=== PATIENT | female | born 1980 | race Caucasian/White ===

== ENCOUNTER 2019-09-22 13:19 | Emergency (ER) | payer OTHER, SELFPAY ==
--- NOTE | ~2019-09-22 | US_ITS ---
EXAMINATION: US OB <= 14 weeks fetus DATE: 09/22/2019 15:34 INDICATION: Vaginal bleeding and pelvic pain during first trimester TECHNIQUE: Real-time pelvic ultrasound utilizing both a transvaginal and transabdominal probe was pe rformed. The interpreting radiologist was not present for the study. COMPARISON: None. FINDINGS: The uterus measures 12.8 x 8.7 x 10.1 cm. There is an intrauterine gestational sac. A yolk sac and f etal pole are identified. The crown rump length measures 1.4 cm, which correlates with an estimated g estational age of 7 weeks and 4 days. heart motion is identified measuring 168 beats per minute (bpm) by M-mode Doppler. 5.2 x 4.8 6.4 cm heterogeneously hypoechoic fibroid at the uterine fundus. A couple subcentimeter anechoic nabothian cysts at the cervix. The right ovary measures 3.5 x 2.9 x 2.4 cm. And contains a 1.7 cm anechoic likely corpus luteum cyst . The left ovary measures 3.1 x 1.9 x 3.3 cm. There are at least 3 subcentimeter anechoic follicles i n the left ovary. Vascular flow is identified in both ovaries on color Doppler. There is no free flui d in the pelvis. IMPRESSION: 1. Single living fetus with heart rate of 168 bpm. 2. Gestational age by ultrasound of 7 weeks 4 day(s) +/- 5 day(s) with ultrasound estimated date of delivery (VIRGILIO) of 05/06/2020. 3. 6.4 cm fibroid at the uterine fundus. Reviewed, dictated and finalized at location A. [facility] ARTIST MODEL IMPRESSION: 1. Single living fetus with heart rate of 168 bpm. 2. Gestational age by ultrasound of 7 weeks 4 day(s) +/- 5 day(s) with ultraso und estimated date of delivery (VIRGILIO) of 05/06/2020. 3. 6.4 cm fibroid at the uterine fundus.
[2019-09-22 13:25] VITALS: BP 134/74; PULSE 84; RESP 16; TEMP 36.7; O2SAT 100
[2019-09-22 13:55] VITALS: BP 130/77; PULSE 86
[2019-09-22 13:57] VITALS: BP 126/70; PULSE 83
[2019-09-22 13:58] VITALS: BP 125/73; PULSE 94
--- NOTE | 2019-09-22 14:15 | ED.PREGNANCY ---
HPI - General Chief complaint: OB/Uterine Contractions <ZAHEER Kidd Last Filed: 09/22/19 16:03> Stated complaint: 7 WEEKS BLEEDING <ZAHEER Kidd Last Filed: 09/22/19 16:03> Time Seen by Provider: 09/22/19 13:23 <ZAHEER Kidd Last Filed: 09/22/19 16:03> Source: patient <ZAHEER Kidd Last Filed: 09/22/19 16:03> Mode of arrival: ambulatory <ZAHEER Kidd Last Filed: 09/22/19 16:03> Limitations: no limitations <ZAHEER Kidd Last Filed: 09/22/19 16:03> History of Present Illness HPI Narrative: Patient is a 39-year-old female who presents to emergency department for evaluation of vaginal bleeding that increased today and notes that she has been having off-and-on spotting over the last week after seeing Dr. Guillen in the office on Saturday began to have spotting on Saturday. Patient has not informed her siding coreboard inspector that she has had bleeding. Patient notes she had ultrasound yesterday. Patient notes today she has had red blood per the vagina denying any pain. patient denies any pain on arrival. Patient is G6, P4. Patient denies any vomiting diarrhea urinary symptoms. <ZAHEER Kidd Last Filed: 09/22/19 16:03> Related Data Home medications: Home Medications Medication Instructions Recorded Confirmed albuterol sulfate [ProAir HFA] INHALATION 09/22/19 <ZAHERE Kidd Last Filed: 09/22/19 16:03> Allergies/Adverse reactions: Allergies Allergy/AdvReac Type Severity Reaction Status Date / Time No Known Allergies Allergy Verified 09/22/19 13:41 <ZAHEER Kidd Last Filed: 09/22/19 16:03> Review of Systems Review of Systems: Narrative: CONSTITUTIONAL: Denies fever, chills, or sweats. EYES: Denies redness, or discharge. ENT: Denies rhinorrhea, congestion, sore throat, or otalgia. RESPIRATORY: Denies cough or dyspnea. GASTROINTESTINAL: Denies abdominal pain, nausea, vomiting, or diarrhea. GENITOURINARY: Denies dysuria or hematuria. SKIN: Denies rash or itching. MUSCULOSKELETAL: Denies back pain, joint pain, or myalgia. NEUROLOGIC: Denies headache <Ken Edmondson PA-C - Last Filed: 09/22/19 16:03> [facility] Social History Social History: Social History (Updated 09/22/19 @ 14:17 by Ken Edmondson PA-C) Smoking status: Current every day smoker Gender identity (if verbalized by the patient): Female <Ken Edmondson PA-C - Last Filed: 09/22/19 16:03> Exam Narrative: Exam Narrative: GENERAL: Well-appearing, well-nourished, and in no acute distress. HEAD: Normocephalic, atraumatic. EYES: PERRLA and EOMI. ENT: Nares clear, no rhinorrhea or epistaxis. Mucous membranes moist. Oropharynx without tonsillar hypertrophy exudate or other lesions. CHEST: Clear to auscultation. No respiratory distress. No wheezes rales or rhonchi HEART: Regular rate and rhythm. No murmur heard. Normal peripheral pulses. ABDOMEN: Soft, nontender, nondistended EXTREMITIES: Normal range of motion. No edema. SKIN: Warm, dry, no rash. NEURO: No focal deficits. Alert and oriented x3. Cranial nerves II through XII grossly intact. Normal speech and gait PSYCH: Normal mood and affect. <Ken Edmondson PA-C - Last Filed: 09/22/19 16:03> Course Course Emergency Course: Patient in the room in no distress at this time aware of case findings treatment plan diagnosis recommendations and discussion with siding coreboard inspector <Ken Edmondson PA-C - Last Filed: 09/22/19 16:03> Consultations Consultation #1: Discussed case with Dr. Guillen who is aware of the case and will follow patient in clinic <Ken Edmondson PA-C - Last Filed: 09/22/19 16:03> Date: 09/22/19 <ZAHEER Kidd Last Filed: 09/22/19 16:03> Time: 16:00 <ZAHEER Kidd Last Filed: 09/22/19 16:03> Vital Signs Vital signs: Vital Signs Temperature 36
[2019-09-22 14:16] LABS: Add Urine Microscopic? YES; Appearance Urine Clear (Clear); Bacteria Urine Trace /hpf; Bilirubin Urine Negative (Negative); Blood Urine 3+ (Negative); Color Urine Straw (Yellow); Glucose Urine UA Negative (Negative); Ketones Urine Negative (Negative); Leukocyte Esterase Ur Trace LEU/UL (Negative); Mucus Urine Rare /lpf; Nitrate Urine Negative (Negative); Protein Urine Negative (Negative); RBC Urine 0-2 /hpf (0-2); Specific Grav Ur 1.006 (1.001-1.035); Squamous Epithelial Cell Urine Moderate /hpf (Few); Urobilinogen Urine Negative mg/dL (<2.0); WBC Urine 0-3 /hpf
--- NOTE | 2019-09-22 15:11 | PC.NURSE ---
pt not in room unable to redraw cbc
[2019-09-22 15:43] LABS: Basophils Absolute Auto 0.1 K/mm3 (0.0-0.1); Basophils Percent Auto 0.9 % (0.2-1.2); Eosinophils Absolute Auto 0.2 K/mm3 (0-0.3); Eosinophils Percent Auto 2.6 % (0-4.4); Hematocrit 35.3 % (37.0-47.0); Hemoglobin 10.2 g/dL (12.0-15.0); Immature Granulocyte Absolute 0.01 K/mm3 (0.00-0.031); Immature Granulocyte Percent A 0.1 % (0-0.5); Immature Platelet Fraction Pct 13.6 % (0.9-11.2); Lymphocytes Absolute Auto 2.27 K/mm3 (0.9-3.2); Lymphocytes Percent Auto 29.9 % (18.3-44.2); Mean Corpuscular HGB Conc 28.9 g/dl (32-36); Mean Corpuscular Volume 69.4 fl (80-100); Monocytes Absolute Auto 0.5 K/mm3 (0.1-0.6); Monocytes Percent Auto 6.7 % (2.6-8.5); Neutrophils Absolute Auto 4.5 K/mm3 (1.3-6.7); Neutrophils Percent Auto 59.8 % (45.5-73.1); Platelet Count Result 176 k/mm3 (150-375); Red Blood Count 5.09 M/mm3 (4.2-5.4); Red Cell Distribution Width 21.3 % (11.5-14.5); White Blood Count 7.6 K/mm3 (4.5-10.0)
[2019-09-22 15:58] LABS: Large Platelets Present; Platelet Estimate Adequate (Adequate)
[2019-09-22 15:59] LABS: Anisocytosis 2+ (NORMAL); Ovalocytes 1+ (NORMAL)
[2019-09-22] MEDS: RHO(D) IMMUNE GLOBULIN 300 MCG SYRINGE IM (16:07)
[2019-09-22 16:20] VITALS: BP 133/62; PULSE 71; RESP 16; TEMP 37.1; O2SAT 99
== END 2019-09-22 16:32 | disposition home or self-care (01) ==
PROVIDERS: Emergency Medicine Emergency Medical Services; Emergency Provider Emergency Medicine
DX: O20.9 Hemorrhage in early pregnancy, unspecified (principal); Z3A.01 Less than 8 weeks gestation of pregnancy; O99.331 Smoking (tobacco) complicating pregnancy, first trimester; F17.210 Nicotine dependence, cigarettes, uncomplicated
CPT/HCPCS: 36415; 76801; 81001; 84702; 85025; 85055; 86850; 90384; 96372; 99284; J2790

== ENCOUNTER 2021-11-07 10:25 | Outpatient (CLI) | payer OTHER, SELFPAY ==
--- NOTE | ~2021-11-07 | US_ITS ---
EXAMINATION: US pelvic complete EXAM DATE: 11/07/2021 10:59 INDICATION: N85.2 - Hypertrophy of uterus . TECHNIQUE: Pelvic transabdominal sonogram was performed. There are multiple grayscale and Doppler im ages available for interpretation. Comparison is made to prior examination from 09/22/2019. FINDINGS: Uterus measures 12.4 x 9.3 x 7.6 cm, with a fundal fibroid measuring 6 cm. Endometrial str ipe are well visualized, at least partly due to the large fibroid. There is no free pelvic fluid. Right adnexa: The ovary measures 3.4 x 2.6 x 2.7 cm and is morphologically normal. Ovarian vascular f low confirmed. Left adnexa: The ovary measures 3.0 x 2.4 x 1.8 cm and is morphologically normal. Ovarian vascular fl ow confirmed. IMPRESSION: 1. Large fundal fibroid unchanged. Reviewed, dictated and finalized at location G.
== END 2021-11-07 10:26 | disposition home or self-care (01) ==
PROVIDERS: PCP Internal Medicine; Visit Provider Obstetrics & Gynecology
DX: D25.9 Leiomyoma of uterus, unspecified (principal); N85.2 Hypertrophy of uterus
CPT/HCPCS: 76856

== ENCOUNTER 2021-11-25 16:47 | Emergency (ER) | payer OTHER, SELFPAY ==
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
[2021-11-25 17:04] VITALS: BP 123/67; PULSE 78; RESP 20; TEMP 37.1; O2SAT 100
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
== END 2021-11-25 19:00 | disposition home or self-care (01) ==
PROVIDERS: Emergency Provider Registered Nurse
DX: M54.2 Cervicalgia (principal); M54.6 Pain in thoracic spine; F17.200 Nicotine dependence, unspecified, uncomplicated; F12.90 Cannabis use, unspecified, uncomplicated
CPT/HCPCS: 72040; 72072; 99214; G0463

== ENCOUNTER 2022-02-01 12:06 | Inpatient (IN) | payer OTHER, SELFPAY ==
[2022-01-26 15:21] VITALS: BMI 29.2
--- NOTE | 2022-01-26 15:24 | SUR.PREOP ---
Report to the Outpatient Waiting Room, entrance under the green pavilion located off [facility], at time _0630 on date _02/01/22 . OR Time: _0830 - You and your visitor will be asked a series of questions to screen for COVID 19 for your protection. - Only one visitor is allowed at this time. - The patient visitor is requested to leave or wait in car when not with patient. - A mask is required within the hospital. Patients may have clear liquids (water, carbonated beverages, clear teas, apple juice) until 3 hours prior to surgery with a maximum of 20 ounces. - No food from midnight until time of surgery - Infants may have breast milk until 4 hours before surgery, infant formula 6 hours prior to surgery. - Children will be allowed to drink immediately following surgery. If applicable, please bring a bottle or sippy cup to assist with drinking. Juice, water, soda, and popsicles are readily available. For infants on formula, please bring formula the day of surgery. Pacifiers are allowed. Take the following medications with a SIP of water the morning of surgery: __bring albuterol inhaler Medications to discontinue per physician n/a Date to take last dose_n/a Please no make-up, nail albanian, hairspray, perfume, deodorant, or body powder the day of surgery. No jewelry (including any body piercings) or valuables the day of surgery, leave them at home. Please take a shower or bath the night before, or the morning of, surgery with an antibacterial soap. Wear comfortable, loose fitting clothing. Children are encouraged to wear pajamas. - Jewelry must be removed prior to entering the operating room. Rings and piercings that are not removed may be cut off. - The hospital will not accept responsibility for valuables. - Please leave all valuables, including medications, at home the day of surgery. If you are going home after surgery, a licensed tractor driver must drive you home. - NO public transportation without another adult. - We recommend that an adult stay with you for 24 hours following discharge. - We also recommend that you do not drive, make important decision, drink alcoholic beverages, or take any drugs that were not prescribed by your health care provider for at least 24 hours after your discharge time. For Pediatric surgeries, we recommend two adults accompany the child home (only one inside the building at this time). Follow any additional instructions given to you from your surgeon. If you or anyone in your household have experienced Covid symptoms in the past week, please notify your surgeon or the nurse liaison at the phone number below for possible testing. Telephone instructions given to [email or web address] and asked if any additional questions and then verbalized understanding. Patient advised to call surgeon office or pre surgery nurse liaison [phone] if any additional questions.
--- NOTE | 2022-01-31 14:23 | WPDANESEPPF ---
Anes - Initial Pre Proc Eval Procedure: Operation Date: 02/01/22 08:30 Proposed Procedures p Total Abdominal Hysterectomy - Leonardo Guillen MD Date/Time: 01/31/22 14:23 Surgeon: Leonardo Guillen MD Pre Op Diagnosis: uterine fibroid Patient Data Age: 41 Gender: F Height: 1.65 m Weight: 79.54 kg Allergies Allergy/AdvReac Type Severity Reaction Status Date / Time nitrofurantoin Allergy Unknown Verified 02/01/22 06:42 [From Macrobid] Home Medications Medication Instructions Recorded Confirmed Type albuterol sulfate 90 mcg/actuation 1 inh inhalation PRN 01/26/22 02/01/22 History aerosol inhaler Patient hx anesthesia problems: none Family hx anesthesia problems: none Results Review: All pre-operative results and documents have been reviewed as part of the pre-operative evaluation. [facility] Past Medical History Medical History Anxiety Asthma Leiomyoma Miscarriage 03/19/2000 suction d&c 10/15/19 suction d&c Overweight (BMI 25.0-29.9) Smoker Surgical History Surgical History History of colposcopy with cervical biopsy 10/08/02 History of tubal ligation History of umbilical hernia repair Social History Social History Smoking status: Current every day smoker Tobacco type: cigarettes Additional smoking assessment comments: 26 yeara 1/2 ppd cigarettes Alcohol intake: current Alcohol use details: 2 times a year Substance use: current Substance use type: marijuana Other substance usage details: smoking daily. 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 Gender identity (if verbalized by the patient): Female Sexual Orientation (if Verbalized by the Patient): Straight or Heterosexual Spiritual care concerns: No Anes - Eval Final PreProcedure Day of Procedure 01/31/22 14:23 Patient weight: overweight Heart: regular rate and rhythm Lungs: clear to auscultation and normal air movement Airway: Mallampati scale class II Neurological: alert and oriented Last oral intake: >/= 8 hours ASA classification: II Emergent: no Anesthetic plan: proceed Anesthesia type and monitoring: general ETT Results Review: All pre-operative results and documents have been reviewed as part of the pre-operative evaluation. Informed Consent: The patient's anesthetic plan and its attendant risks and benefits were discussed with the patient/family/POA. Questions were solicited and answers provided to the satisfaction of the patient/family/POA.
--- NOTE | 2022-01-31 16:03 | PM.IMHP ---
H&P: HPI History of Present Illness Date/Time: 01/31/22 16:03 41-year-old 6 para 4024 female presents for definitive therapy of heavy vaginal bleeding cramping clotting fibroid and knee Susan. She has had heavy vaginal bleeding for over 1 year and has been seeing her primary care physician who has transfused her on multiple occasions but otherwise no significant evaluations been undertaken. We were able to see her approximately 3 months ago and exam revealed 14 size uterus which by ultrasound was confirmed with also a 6cm fibroid noted. She has continued with heavy bleeding cramping clotting has been to the emergency room again since her last visit for transfusion. Presents today for definitive therapy in the form of hysterectomy. Chief Complaint: Symptomatic fibroid uterus Review of Systems Review of Systems: All systems reviewed & are unremarkable except as noted in HPI and below PMFSH Past Medical History Medical History Anxiety Asthma Leiomyoma Miscarriage 03/19/2000 suction d&c 10/15/19 suction d&c Overweight (BMI 25.0-29.9) Smoker Surgical History Surgical History History of colposcopy with cervical biopsy 10/08/02 History of tubal ligation History of umbilical hernia repair Social History Social History Smoking status: Current every day smoker Tobacco type: cigarettes Additional smoking assessment comments: 24 yeara 1/2 ppd cigarettes Alcohol intake: current Alcohol use details: 2 times a year Substance use: current Substance use type: marijuana Other substance usage details: smoking daily. 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 Gender identity (if verbalized by the patient): Female Sexual Orientation (if Verbalized by the Patient): Straight or Heterosexual Spiritual care concerns: No Meds Home Medications and Allergies Home Medications Medication Instructions Recorded Confirmed Type albuterol sulfate 90 mcg/actuation 1 inh inhalation PRN 01/26/22 01/26/22 History aerosol inhaler Allergies Allergy/AdvReac Type Severity Reaction Status Date / Time nitrofurantoin Allergy Unknown Verified 01/26/22 14:56 [From Macrobid] Exam Const: General: cooperative, healthy appearing and comfortable Resp: Effort & Inspection: normal respiratory effort Auscultation: clear to auscultation bilaterally Cardio: Rate: regular rate Rhythm: regular rhythm GI: Inspection: normal to inspection GI Palp: Yes abdominal tenderness and Yes Palpable mass present ( midline mass noted) Auscultation: normal bowel sounds : External Female Exam: normal external appearance Speculum Exam - Vagina: normal appearance of the vagina Speculum Exam - Cervix: normal appearance of the cervix Bimanual exam- vagina & uterus: enlarged ( 14-16 week size.) Bimanual Exam- Adnexa, other: normal adnexae Assessment and Plan Assessment and plan (1) Menometrorrhagia: Code(s): N92.1 - Excessive and frequent menstruation with irregular cycle Status: Acute Assessment and Plan: proceed with abdominal hysterectomy with bilateral salpingectomy. Plan for ovarian preservation at this point. (2) Leiomyoma: Code(s): D21.9 - Benign neoplasm of connective and other soft tissue, unspecified Status: Acute (3) Anemia: Code(s): D64.9 - Anemia, unspecified Status: Acute
[2022-02-01] VITALS (14 sets, daily range): BP systolic 113–142; BP diastolic 55–81; PULSE 53–116; RESP 12–18; TEMP 36.4–37.1; O2SAT 95–100
[2022-02-01] MEDS: ACETAMINOPHEN 500 MG TABLET 1000 MG PO (06:43)
[2022-02-01 07:17] LABS: Hematocrit 44.1 % (37.0-47.0); Hemoglobin 13.9 g/dL (12.0-15.0); Immature Platelet Fraction Pct 11.3 % (0.9-11.2); Mean Corpuscular HGB Conc 31.5 g/dl (32-36); Mean Corpuscular Hemoglobin 27.6 pg (26-34); Mean Corpuscular Volume 87.7 fl (80-100); Platelet Count Result 128 k/mm3 (150-375); Red Blood Count 5.03 M/mm3 (4.2-5.4); Red Cell Distribution Width 23.4 % (11.5-14.5); White Blood Count 4.4 K/mm3 (4.5-10.0)
[2022-02-01] MEDS: LACTATED RINGERS 1,000 ML 30 ML IV CONT ×2 (07:17→10:33)
[2022-02-01] MEDS: KETOROLAC 15 MG/ML VIAL (*BKC) IV PUSH (07:18)
--- NOTE | 2022-02-01 07:24 | WPDHPUPDATE1 ---
History and Physical Update Update Date/Time: 02/01/22 07:24 History and Physical has been reviewed, including an updated exam of the patient. There are NO changes in the patient's condition. Risks, benefits, and alternatives have been discussed and questions answered. Patient agrees to proceed with procedure.
[2022-02-01] MEDS: ceFAZolin 2 GM/D5W 50 ML 2 GM/50 ML BAG IVPB (08:20)
--- NOTE | 2022-02-01 10:13 | W.PM.PROC2 ---
Procedure Note - Detailed Date of Procedure 02/01/22 Pre-op Diagnosis uterine fibroid Post-op Diagnosis Same Procedure Performed Total abdominal hysterectomy with bilateral salpingectomy Surgeon Leonardo Guillen MD Anesthesia General Indications Menometrorrhagia/dysmenorrhea/anemia Findings 1. Uterus enlarged and globular consistent with fibroid uterus. 2. Ovaries without abnormality. Description of Procedure Patient was this procedure a Pfannenstiel incision was made. This carried down the fascia which was extended bilaterally the length of the skin incision. Superiorly and inferiorly dissected away from the rectus muscles which were then bluntly dissected in the peritoneum was entered without difficulty. Bowel was packed into the upper abdomen and the uterus was identified with the tubes ovaries. Medial salpinx was cauterized and cut and the tube was removed separately. Round ligament was then grasped clamped cut and tied and incised to delineate the anterior and posterior leaf the broad ligament. Utero-ovarian ligament was then clamped cut and tied and the ovary was dropped out of the operative field. At this point the uterine vessels were skeletonized without difficulty clamped cut and tied and once the uterine arteries had been tied bilaterally the uterus was removed at the level of the cervix. Bladder was sharply and bluntly dissected off the anterior portion of the cervix. Straight Carolynn clamps were used to clamp cut and tie the paracervical tissue and then a curved clamp used across the vaginal cuff and the cervical stump was removed. Both angles of the cuff were closed using 0 Vicryl suture which rendered the angles hemostatic. Then a running interlocking layer between these 2? angles to approximate the rest of the vaginal cuff. Irrigation was undertaken and there was no bleeding [place] derm was empirically placed over the vaginal cuff. All the incisions and suture sites were identified and continued to be hemostatic. All subfascial tissue was hemostatic the fascia was approximated using 0 Vicryl from the left angle midline and the right angle midline with good approximation hemostasis noted. Irrigation was undertaken subcutaneous area and this was approximated 0 plain and then a 4-0 Monocryl subcuticular stitch to approximate the skin edges. This point seizure was considered terminated the patient was sent cover room in stable condition. Estimated Blood Loss 200 Drains Yes Packing No Pathology Yes Complications No immediate complications Condition Stable Disposition Floor [facility] Billing Surgery - Charge Forward: Surgery Billing
[2022-02-01] MEDS: ONDANSETRON INJ 4 MG/2 ML VIAL IV PUSH ×2 (10:44→20:38)
[2022-02-01] MEDS: fentaNYL CITRATE INJ (*CRX) 100 MCG/2 ML VIAL 25 MCG IV PUSH ×6 (10:48→11:22)
--- NOTE | 2022-02-01 12:10 | PC.NURSE ---
This patient, Svitlana Cross, was received from PACU via stretcher on 02/01/22 at 1210. Patient oriented to unit policies and routines
[2022-02-01] MEDS: MORPHINE SULFATE PCA (*CRX) 30 MG/30 ML SYR IV CONT (13:01)
[2022-02-01] MEDS: DEXTROSE 5%/LACTATED RINGERS 1,000 ML 125 ML IV CONT ×2 (13:58→20:41)
[2022-02-01] MEDS: KETOROLAC 30 MG/ML VIAL (*BKC) IV PUSH (17:14)
[2022-02-01] MEDS: HYDROcodone/acetaminophen (*CRX) 5-325 MG TABLET 1 TAB PO (17:14)
--- NOTE | 2022-02-01 17:14 | PC.NURSE ---
[employer] infusion stopped to start PO and IVP medications. [employer] infusion set will remain on nursing unit in case pt decides that she desires [employer] medication instead of PO/IVP meds.
[2022-02-01] MEDS: HYDROcodone/acetaminophen (*CRX) 10-325 MG TABLET 1 TAB PO (20:09)
[2022-02-01] MEDS: MORPHINE SULFATE (*CRX) 4 MG/ML INJ IV PUSH (20:38)
[2022-02-02] MEDS: KETOROLAC 30 MG/ML VIAL (*BKC) IV PUSH (04:30)
[2022-02-02 04:50] VITALS: BP 134/70; PULSE 60; RESP 18; TEMP 36.6
[2022-02-02 07:36] LABS: Basophils Percent Auto 0.4 % (0.2-1.2); Eosinophils Percent Auto 0.2 % (0-4.4); Hematocrit 42.9 % (37.0-47.0); Hemoglobin 13.2 g/dL (12.0-15.0); Immature Granulocyte Absolute 0.02 K/mm3 (0.00-0.031); Immature Granulocyte Percent A 0.2 % (0-0.5); Immature Platelet Fraction Pct 14.2 % (0.9-11.2); Lymphocytes Absolute Auto 1.49 K/mm3 (0.9-3.2); Mean Corpuscular HGB Conc 30.8 g/dl (32-36); Mean Corpuscular Hemoglobin 27.6 pg (26-34); Mean Corpuscular Volume 89.6 fl (80-100); Monocytes Absolute Auto 0.7 K/mm3 (0.1-0.6); Monocytes Percent Auto 6.6 % (2.6-8.5); Neutrophils Absolute Auto 8.4 K/mm3 (1.3-6.7); Neutrophils Percent Auto 78.6 % (45.5-73.1); Platelet Count Result 164 k/mm3 (150-375); Red Blood Count 4.79 M/mm3 (4.2-5.4); Red Cell Distribution Width 23.4 % (11.5-14.5); White Blood Count 10.7 K/mm3 (4.5-10.0)
--- NOTE | 2022-02-02 08:01 | WPDANESPN ---
Anes - Prog Note Post-Op Date/Time: 02/02/22 08:01 Cardiovascular status: normal Respiratory status: normal Airway patency: baseline Mental status: baseline Post-Op hydration status: normal Vital Signs: Last Vital Signs Temp 36.6 C 02/02/22 04:50 Pulse 60 02/02/22 04:50 Resp 18 02/02/22 04:50 BP 134/70 02/02/22 04:50 Pulse Ox 98 02/01/22 17:45 O2 Del Method Room Air 02/02/22 04:50 O2 Flow Rate 7 02/01/22 10:35 Pain Score (VAS): 3 I/O: Intake & Output 02/01/22 02/02/22 02/02/22 23:59 07:59 15:59 Intake Total 1530 1350 Output Total 1050 850 Balance 480 500 Laboratory Tests 02/02/22 07:21 02/01/22 02/02/22 07:07 07:21 WBC 10.7 H RBC 4.79 Hgb 13.2 Hct 42.9 MCV 89.6 MCH 27.6 MCHC 30.8 L RDW 23.4 H Plt Count 164 MPV TNP Immature Gran % (Auto) 0.2 Neut % (Auto) 78.6 H Lymph % (Auto) 14.0 L [place] % (Auto) 6.6 Eos % (Auto) 0.2 Baso % (Auto) 0.4 Lymph # (Auto) 1.49 [place] # (Auto) 0.7 H Eos # (Auto) 0.0 Baso # (Auto) 0.0 Abs Immat Gran (auto) 0.02 Absolute Neuts (auto) 8.4 H Absolute Nucleated RBC 0.0 Nucleated RBC % 0.0 % Immature Plt Fraction 14.2 H Antibody Screen Negative Post-procedural complaints: none Patient Feedback: Patient satisfied with anesthetic care.
[2022-02-02 08:30] VITALS: BP 126/75; PULSE 62; RESP 16; TEMP 37.1; O2SAT 98
[2022-02-02] MEDS: MORPHINE SULFATE (*CRX) 4 MG/ML INJ IV PUSH (08:30)
--- NOTE | 2022-02-02 08:36 | P.DS_ITS ---
DS: Admitting Diagnosis Discharge Date 02/02/2022 Admitting Diagnosis symptomatic uterine fibroid DS: Summary Hospital Course Hospital Course: 41-year-old female admitted for abdominal hysterectomy due to uterine fibroids and heavy bleeding with anemia. Underwent procedure without difficulty and on the 1st postoperative day she is ambulating voiding tolerating regular diet and on oral pain medications and strongly desires to go home. Time Spent with Patient Time attestation: Total time spent providing and/or coordinating discharge services: Exam Narrative: Lungs are clear Abdomen positive bowel sounds soft /incision covered by bandage but bandage is dry. Appropriately tender. DS: Data Data Completed and Pending Pending studies at discharge: Pending at discharge 02/01/22 09:49 Surgical [PTH] Routine Labs on day of discharge: Labs from last 24 hours 02/02/22 07:21 WBC 10.7 H RBC 4.79 Hgb 13.2 Hct 42.9 MCV 89.6 MCH 27.6 MCHC 30.8 L RDW 23.4 H Plt Count 164 MPV TNP Immature Gran % (Auto) 0.2 Neut % (Auto) 78.6 H Lymph % (Auto) 14.0 L [place] % (Auto) 6.6 Eos % (Auto) 0.2 Baso % (Auto) 0.4 Lymph # (Auto) 1.49 [place] # (Auto) 0.7 H Eos # (Auto) 0.0 Baso # (Auto) 0.0 Abs Immat Gran (auto) 0.02 Absolute Neuts (auto) 8.4 H Absolute Nucleated RBC 0.0 Nucleated RBC % 0.0 % Immature Plt Fraction 14.2 H Discharge Plan Discharge Discharging Clinician: Leonardo Guillen Patient Disposition: Home, Self-Care Activity: as tolerated Diet: as tolerated Patient Instructions: Antibiotic Form Stand Alone Forms: General Discharge Information Follow-up/Referrals: Leonardo Guillen MD [Physician] - 3 Weeks Discharge Medications: New hydrocodone-acetaminophen 5-325 mg Tablet 1 tablet PO Q3H PRN (Reason: Pain Rated 5 Or Less) Qty: 20 0RF ibuprofen 600 mg Tablet 600 mg PO Q6H PRN (Reason: Cramping) Qty: 30 0RF Continued albuterol sulfate 90 mcg/actuation HFA aerosol inhaler 1 inh INHALATION PRN Date of admission: 02/01/22 12:06 Primary Care Provider: PHYSICIAN NOT ON STAFF,NONSTAFF Admitting Provider: Leonardo Guillen Attending physician on admission: Leonardo Guillen Condition: Stable
[2022-02-02] MEDS: HYDROcodone/acetaminophen (*CRX) 5-325 MG TABLET 1 TAB PO (12:11)
--- NOTE | 2022-02-07 12:47 | PM.DS ---
DS: Admitting Diagnosis Discharge Date 02/02/22 Admitting Diagnosis Symptomatic uterine fibroid DS: Discharge Diagnosis Discharge Diagnosis Plan Discharge home postoperative day 1. Will be seen in 1 week for incision check. DS: Summary Hospital Course Reason for hospitalization: 41-year-old female admitted for abdominal hysterectomy due to symptomatic fibroid uterus and menometrorrhagia. Underwent procedure without difficulty. On the 1st postoperative day she was on oral pain medication tolerating regular diet and ambulating without difficulty. She will be discharged home and followed up in 1 week. Hospital Course: See above Time Spent with Patient Time attestation: Total time spent providing and/or coordinating discharge services: DS: Data Data Completed and Pending Completed studies during hospitalization: Pending at discharge 02/01/22 09:49 Surgical [PTH] Routine Discharge Plan Discharge Discharging Clinician: Leonardo Guillen Patient Disposition: Home, Self-Care Activity: as tolerated Diet: as tolerated Patient Instructions: Hysterectomy (DC) Stand Alone Forms: General Discharge Information Follow-up/Referrals: Leonardo Guillen MD [Physician] - 3 Weeks Discharge Medications: New ibuprofen 600 mg Tablet 600 mg PO Q6H PRN (Reason: Cramping) Qty: 30 0RF Continued albuterol sulfate 90 mcg/actuation HFA aerosol inhaler 1 inh INHALATION PRN Discontinued hydrocodone-acetaminophen 5-325 mg tablet 1 tablet PO Q3H PRN (Reason: Pain Rated 5 Or Less) Qty: 20 0RF Date of admission: 02/01/22 12:06 Primary Care Provider: PHYSICIAN NOT ON STAFF,NONSTAFF Admitting Provider: Leonardo Guillen Attending physician on admission: Leonardo Guillen Condition: Stable Quality Discharge diagnosis of uterine fibroids with menometrorrhagia
== END 2022-02-02 12:20 | disposition home or self-care (01) | DRG 513 ==
LOC: ANHOB2 12:10
PROVIDERS: Anesthesiology; Admitting Provider Obstetrics & Gynecology; Visit Provider Obstetrics & Gynecology
PROC: 0UT94ZZ Resection of Uterus, Percutaneous Endoscopic Approach (ICD-10-PCS; principal; 2022-02-01 08:30)
DX: N92.1 Excessive and frequent menstruation with irregular cycle (principal); D25.9 Leiomyoma of uterus, unspecified; N94.6 Dysmenorrhea, unspecified; D64.9 Anemia, unspecified; F17.210 Nicotine dependence, cigarettes, uncomplicated; F41.9 Anxiety disorder, unspecified
CPT/HCPCS: 36415; 85025; 85027; 85055; 86850; 86900; 86901; 88307; A9270; J0131; J0330; J0690; J1100; J1170; J1885; J2250; J2270; J2405; J2704; J2710; J3010; J7120; J7121

== ENCOUNTER 2023-05-29 10:02 | Outpatient (CLI) | payer OTHER, SELFPAY ==
--- NOTE | 2023-05-29 10:15 | ECG_ITS ---
Measurements Intervals [place] Rate: 59 P: 64 RI: 128 QRS: 71 QRSD: 78 T: 55 QT: 408 QTc: 405 Interpretive Statements SINUS BRADYCARDIA OTHERWISE NORMAL ECG NO PREVIOUS ECG AVAILABLE FOR COMPARISON Electronically Signed On 05-29-2023 10:34:58 CDT by Bobby Michael M.D.
== END 2023-05-29 10:03 | disposition home or self-care (01) ==
LOC: ANHSURGERY 10:06
PROVIDERS: PCP Internal Medicine; Visit Provider Surgery
DX: Z01.818 Encounter for other preprocedural examination (principal); K40.90 Unilateral inguinal hernia, without obstruction or gangrene, not specified as recurrent; F17.210 Nicotine dependence, cigarettes, uncomplicated
CPT/HCPCS: 36415; 86850; 86900; 86901; 93005

== ENCOUNTER 2023-06-04 00:23 | Day surgery (SDC) | payer OTHER, SELFPAY ==
[2023-05-27 12:57] VITALS: BMI 23.8
--- NOTE | 2023-05-27 13:02 | PC.NURSE ---
Addendum entered by Alex Pantoja RN 05/27/23 13:10: Shower with Roberto morning of surgery. Original Note: Report to the Outpatient Waiting Room, entrance under the green pavilion located off [facility], at time _1000_ on date _[id number]_. Planned Procedure Time: _1200_. Time changes happen often and if your time is changed the preop area will call you the afternoon before. - You and your visitor will be asked to self-screen and do not enter if you have any COVID symptoms. - A mask is optional within the hospital at this time. Patients may have clear liquids (water, carbonated beverages, clear teas, apple juice) until 3 hours prior to surgery with a maximum of 20 ounces. - No food from midnight until time of surgery Take the following medications with a SIP of water the morning of surgery: ___Albuterol if needed. DO NOT STOP ANY OF YOUR OTHER PRESCRIPTION MEDICATIONS PRIOR TO SURGERY ?EXCEPT THE FOLLOWING Medications to discontinue per physician None Date to take last dose Please no make-up, nail guatemalan, hairspray, perfume, deodorant, or body powder the day of surgery. No jewelry (including any body piercings) or valuables the day of surgery, leave them at home. Please take a shower or bath the night before, or the morning of, surgery with an antibacterial soap. Wear comfortable, loose fitting clothing. - Jewelry must be removed prior to entering the operating room. Rings and piercings that are not removed may be cut off. - The hospital will not accept responsibility for valuables. - Please leave all valuables, including medications, at home the day of surgery. If you are going home after surgery, a licensed paratransit driver must drive you home. - NO public transportation without another adult if you receive anesthesia. - We recommend that an adult stay with you for 24 hours following discharge. - We also recommend that you do not drive, make important decision, drink alcoholic beverages, or take any drugs that were not prescribed by your health care provider for at least 24 hours after your discharge time. Follow any additional instructions given to you from your surgeon. If you or anyone in your household have experienced Covid symptoms in the past week, please notify your surgeon or the nurse liaison at the phone number below for possible testing. Telephone instructions given to __Patient___and asked if any additional questions and then verbalized understanding. Patient advised to call surgeon office or pre surgery nurse liaison [phone] if any additional questions.
[2023-06-04] VITALS (10 sets, daily range): BP systolic 108–153; BP diastolic 61–90; PULSE 57–95; RESP 13–18; TEMP 36.6–37.2; O2SAT 96–100; BMI 23.9
[2023-06-04] MEDS: ACETAMINOPHEN 500 MG TABLET 1000 MG PO (10:21)
[2023-06-04] MEDS: KETOROLAC 15 MG/ML VIAL (*BKC) IV PUSH ×2 (10:21→15:51)
[2023-06-04] MEDS: LACTATED RINGERS 1,000 ML 30 ML IV CONT ×2 (10:22→16:13)
--- NOTE | 2023-06-04 11:08 | WPDANESEPPF ---
Anes - Initial Pre Proc Eval Procedure: Operation Date: 06/04/23 12:00 Proposed Procedures p Robotic Assisted Laparoscopic Bilateral Inguinal Hernia Repair with Mesh, Possible Open - Clay Willard MD Date/Time: 06/04/23 11:08 Surgeon: Clay Willard MD Pre Op Diagnosis: [place] Ing Hernias Patient Data Age: 43 Gender: F Height: 1.65 m Weight: 65.3 kg Last Vital Signs Temp 36.6 C 06/04/23 10:28 Pulse 95 06/04/23 10:28 Resp 18 06/04/23 10:28 BP 118/77 06/04/23 10:28 Pulse Ox 99 06/04/23 10:28 Allergies Allergy/AdvReac Type Severity Reaction Status Date / Time nitrofurantoin Allergy Unknown Verified 06/04/23 10:07 [From Macrobid] Home Medications Medication Instructions Recorded Confirmed Type albuterol sulfate 90 mcg/actuation 1 inh inhalation PRN 01/26/22 06/04/23 History aerosol inhaler Patient hx anesthesia problems: none Family hx anesthesia problems: none Results Review: All pre-operative results and documents have been reviewed as part of the pre-operative evaluation. [facility] Past Medical History Medical History Anxiety Asthma History of blood transfusion Leiomyoma Miscarriage 03/19/2000 suction d&c 10/15/19 suction d&c Overweight (BMI 25.0-29.9) Smoker Surgical History Surgical History History of colposcopy with cervical biopsy 10/08/02 History of tubal ligation History of umbilical hernia repair S/P total abdominal hysterectomy (02/01/22) LAWANDA with Bilateral salpingectomy Family History Family History Grandparent Leukemia Other Heart disease Hypertension Social History Social History Smoking packs per day: 1.5 Smoking cigarettes per day: 30.0 Years smoked: 25 Smoking pack-years: 37.50 Smoking status: Current every day smoker Tobacco type: cigarettes Additional smoking assessment comments: Down to 8 cigs per day. 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 Gender identity (if verbalized by the patient): Female Sexual Orientation (if Verbalized by the Patient): Straight or Heterosexual Spiritual care concerns: No Anes - Eval Final PreProcedure Day of Procedure 06/04/23 11:08 Patient weight: normal Heart: regular rate and rhythm Lungs: clear to auscultation Airway: Mallampati scale class II Neurological: alert and oriented Last oral intake: >/= 8 hours ASA classification: III Emergent: no Anesthetic plan: proceed Anesthesia type and monitoring: general ETT and standard monitoring Results Review: All pre-operative results and documents have been reviewed as part of the pre-operative evaluation. Informed Consent: The patient's anesthetic plan and its attendant risks and benefits were discussed with the patient/family/POA. Questions were solicited and answers provided to the satisfaction of the patient/family/POA.
[2023-06-04] MEDS: SCOPOLAMINE 1.5 MG PATCH TRANSDERM (11:42)
--- NOTE | 2023-06-04 12:27 | PM.IMHP ---
H&P: HPI History of Present Illness Date/Time: 06/04/23 12:27 Chief Complaint: Bilateral inguinal hernia Narrative: Ms. Cross presents to the office at the request of Dr. Chavis for evaluation.? She reports 4 to 5 month history of persistent bilateral groin discomfort that worsens with activity or prolonged sitting.? Has also noticed bulging in her bilateral groins.? No change in bowel habits, N/V, or abdominal distension. She has history of open total abdominal hysterectomy with bilateral salpingectomy in 01/2022 after which she had an uneventful recovery. Review of Systems Review of Systems: The remainder of the review of systems to include constitutional, HEENT, cardiovascular, respiratory, GI, , integumentary, musculoskeletal, endocrine, immunologic, hematologic, psychiatric, and neurologic are all negative except for which is mentioned above in the HPI. [facility] Past Medical History Medical History Anxiety Asthma History of blood transfusion Leiomyoma Miscarriage 03/19/2000 suction d&c 10/15/19 suction d&c Overweight (BMI 25.0-29.9) Smoker Surgical History Surgical History History of colposcopy with cervical biopsy 10/08/02 History of tubal ligation History of umbilical hernia repair S/P total abdominal hysterectomy (02/01/22) LAWANDA with Bilateral salpingectomy Family History Family History Grandparent Leukemia Other Heart disease Hypertension Social History Social History Smoking packs per day: 1.5 Smoking cigarettes per day: 30.0 Years smoked: 25 Smoking pack-years: 37.50 Smoking status: Current every day smoker Tobacco type: cigarettes Additional smoking assessment comments: Down to 8 cigs per day. 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 Gender identity (if verbalized by the patient): Female Sexual Orientation (if Verbalized by the Patient): Straight or Heterosexual Spiritual care concerns: No Meds Home Medications and Allergies Home Medications Medication Instructions Recorded Confirmed Type albuterol sulfate 90 mcg/actuation 1 inh inhalation PRN 01/26/22 06/04/23 History aerosol inhaler Allergies Allergy/AdvReac Type Severity Reaction Status Date / Time nitrofurantoin Allergy Unknown Verified 06/04/23 10:07 [From Macrobid] Vital Signs Vital Signs - 24 hr 06/04/23 10:28 Temperature 36.6 C Pulse Rate 95 Respiratory Rate 18 Blood Pressure 118/77 Pulse Oximetry 99 Exam Const: General: comfortable and no acute distress HENMT: Ears: TM's normal bilaterally Face/Nose/Sinus: Normal nares present Mouth: Yes moist mucous membranes Eyes: General: appearance normal, both eyes and all related structures Sclera: sclerae normal Pupils: Equal, round and reactive pupils present EOM: EOMs intact bilaterally Neck: Neck: supple and no JVD Resp: Effort & Inspection: normal respiratory effort Auscultation: clear to auscultation bilaterally Cardio: Rate: regular rate Rhythm: regular rhythm GI: Other: Soft, nondistended.? Well healed hysterectomy scar without incisional hernia.? Bilateral inguinal hernias right > left.? Both hernias reducible.? Skin: General skin exam: normal color and no rashes or lesions noted Neuro: General: gait normal Speech: normal speech Motor exam (neuro): 5/5 motor strength present throughout Sensory Exam: normal sensation Extrem: General: normal to inspection Psych: Mental Status: mental status grossly normal Affect: normal affect Assessment and Plan Assessment and plan (1) Inguinal her
--- NOTE | 2023-06-04 12:32 | WPDHPUPDATE1 ---
History and Physical Update Update Date/Time: 06/04/23 12:32 History and Physical has been reviewed, including an updated exam of the patient. There are NO changes in the patient's condition. Risks, benefits, and alternatives have been discussed and questions answered. Patient agrees to proceed with procedure.
[2023-06-04] MEDS: ceFAZolin 2 GM/D5W 50 ML 2 GM/50 ML BAG IVPB (12:47)
[2023-06-04] MEDS: LIDO 1%/EPINEPHRINE 1:100,000 20 ML VIAL 30 ML INFILTRATE (13:30)
[2023-06-04] MEDS: BUPivacaine HCL 0.5% PF 30 ML VIAL INFILTRATE (13:30)
--- NOTE | 2023-06-04 16:21 | W.PM.PROC2 ---
Procedure Note - Detailed Date of Procedure 06/04/23 Pre-op Diagnosis [place] Ing Hernias Post-op Diagnosis Other (Bilateral reducible indirect inguinal hernias and bilateral femoral hernias.) Procedure Performed Robotic assisted laparoscopic bilateral inguinal hernia repair with Bard 3D mid weight mesh. Surgeon Clay Willard MD Ground Hand Sean Suarez,ANTONIA and Lona KNIGHT Anesthesia General Indications Patient is a 43-year-old female who presented with bilateral groin bulges complaining of pain enlargement of the bulges. On examination bilateral inguinal hernias which were easily reducible. She presents now for a robotic assisted laparoscopic bilateral inguinal hernia pair with mesh. Findings Patient had bilateral large indirect inguinal hernias. No incarcerated contents. She also had bilateral small femoral hernias. Description of Procedure After for consent was obtained patient brought to the operating room she is places supine position and general endotracheal anesthesia was administered. The bilateral groin regions and abdomen were then prepped and draped usual sterile fashion. Time-out was then performed correctly identifying the patient as well as procedure be performed. No site marking was needed as this is a bilateral procedure. She was given preoperative IV antibiotics. The proceed and the abdomen left upper quadrant Pia and 10 mm Optiview port. Once inside the abdomen insufflated to a pneumoperitoneum 15 mm Hg of CO2. Looking into the lower portions of the abdomen there were few adhesions of the small bowel to the anterior abdominal wall below the umbilicus. I then placed additional robotic trocar ports in the bilateral abdomen and then docked a the ventral robot to the patient's bedside. They do mention a robotic arms were then docked to the ports and then robotic instruments of after into the abdomen direct visualization. I described how the procedure fat out through a consult to perform the rest the procedure. I 1st started by carefully taking down the adhesions of the small bowel to the lower anterior abdominal wall. This done with careful robotic assisted laparoscopic scissor dissection. There was no injury to the bowel with the aphasia lysis. Once this is done I then proceeded to the peritoneal flap across the lower abdomen starting at about the level of the left anterior superior iliac spine extended across the midline to the right side. Dissection was carried in this preperitoneal plane distally on both sites identifying the inferior epigastric vessels on both sides and preserving these. I dissected down medially down to the prevertebral of the pubic symphysis and allow the bladder to drop down. I dissected down into the space of Retzius for summer cm bilaterally. I then dissected laterally from the pubic and on the left side I 1st reduced the large indirect inguinal hernia sac. The round ligament was cauterized and divided. Once I have the large indirect left inguinal hernia sac dissected free I then everted the hernia sac. As I continued my dissection along the pubic symphysis I identified a left small femoral hernia was some fatty tissue within the hernia. This fatty tissue was removed from the femoral defect. It was brought out through the bedside geriatric assistant port site and discarded. I did send a section on the right side and identified a small right sided femoral defect without any fatty tissue within it. I then dissected the right indirect inguinal hernia sac out of the inguinal canal and anmol and the fact. Bilaterally at then dissected the peritoneal flap proximally until and was up all clearly onto the psoas muscle. At this point then used 2 pieces of by 3 the mid weight mesh measuring 17 cm in length by 12 cm in width. One was chosen for each side and oriented for each side. Both pieces of mesh in the placed into the abdomen and a fit very nicely and conformed to the preperitoneal space and dissected out. The meshes we
[2023-06-04] MEDS: fentaNYL CITRATE INJ (*CRX) 100 MCG/2 ML VIAL 25 MCG IV PUSH ×8 (16:34→17:16)
[2023-06-04] MEDS: oxyCODONE HCL (*CRX) 5 MG TAB IR PO (17:38)
[2023-06-04] MEDS: HYDROmorphone HCL INJ (*CRX) 1 MG/ML SYR 0.5 MG IV PUSH (17:38)
[2023-06-04] MEDS: PROPARACAINE HCL 0.5% 15 ML OPHTH SOLN 1 DROP EACH EYE (18:43)
[2023-06-04] MEDS: ARTIFICIAL TEARS OPHTH SOLN 15 ML BOTTLE 1 DROP EACH EYE (18:44)
== END 2023-06-04 19:05 | disposition home or self-care (01) ==
PROVIDERS: PCP Internal Medicine; Visit Provider Surgery
PROC: 8E0Y4CZ Robotic Assisted Procedure of Lower Extremity, Percutaneous Endoscopic Approach (ICD-10-PCS; CPT 49650; principal; 2023-06-04 12:00)
DX: K40.20 Bilateral inguinal hernia, without obstruction or gangrene, not specified as recurrent (principal); K41.20 Bilateral femoral hernia, without obstruction or gangrene, not specified as recurrent; J45.909 Unspecified asthma, uncomplicated; Z79.51 Long term (current) use of inhaled steroids; F17.210 Nicotine dependence, cigarettes, uncomplicated; F12.90 Cannabis use, unspecified, uncomplicated
CPT/HCPCS: 49650; S2900; A9270; C1781; J0690; J1100; J1170; J1885; J2250; J2405; J2704; J3010; J7120

== ENCOUNTER 2024-10-19 18:23 | Emergency (ER) | payer OTHER, SELFPAY ==
[2024-10-19 18:28] VITALS: BP 130/75; PULSE 85; RESP 20; TEMP 36.8; O2SAT 100
--- NOTE | 2024-10-19 18:47 | ED.LOWEXIN ---
HPI - Extremity Injury (Lower) General Chief Complaint: Extremity Injury, Lower Stated Complaint: right foot toe injury Time Seen by Provider: 10/19/24 18:47 Source: patient Mode of arrival: ambulatory Limitations: no limitations History of Present Illness HPI Narrative: 44-year-old female presented for complaint of right foot pain in the great toe area following an injury about 3 hours prior to arrival. She states she stubbed the toe on a bed leg and fell, stating the toe got stuck underneath the bed. Endorses swelling to the great toe. Attempted to ice and elevate without significant improvement. Did not take anything for pain. Related Data Home Medications ?Medication ?Instructions ?Recorded ?Confirmed ?Last Taken ?Type albuterol sulfate 90 mcg/actuation 1 inh inhalation PRN 01/26/22 06/19/23 06/04/23 History aerosol inhaler ferrous sulfate 325 mg (65 mg mg 10/19/24 Unknown History iron) tablet (FeroSul) Allergies Allergy/AdvReac Type Severity Reaction Status Date / Time nitrofurantoin (From Allergy Unknown Verified 06/19/23 14:09 Macrobid) Review of Systems Review of Systems: per HPI All systems reviewed & are unremarkable except as noted in HPI and below PMFSH Past Medical History Medical History (Updated 10/19/24 @ 19:37 by Ana Cristina Sanchez APRN) History of blood transfusion Anxiety Smoker Overweight (BMI 25.0-29.9) Asthma Leiomyoma Miscarriage 03/19/2000 suction d&c 10/15/19 suction d&c Surgical History Surgical History (Updated 06/19/23 @ 14:20 by ANISA Yun) History of hernia repair Robotic assisted laparoscopic bilateral inguinal hernia repair with Bard 3D mid weight mesh 06/04/23 SAW S/P total abdominal hysterectomy (02/01/22) LAWANDA with Bilateral salpingectomy History of umbilical hernia repair History of tubal ligation History of colposcopy with cervical biopsy 10/08/02 Family History Family History Grandparent Leukemia Other Heart disease Hypertension Social History Social History Smoking packs per day: 1.5 Smoking cigarettes per day: 30.0 Years smoked: 25 Smoking pack-years: 37.50 Smoking status: Current every day smoker Tobacco type: cigarettes Additional smoking assessment comments: Down to 8 cigs per day. 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 Please see nursing chart for further information. There is no relevant family history pertinent to the presenting complaint Exam Narrative: GENERAL: Well-appearing CHEST: Speaks in full sentences. No respiratory distress. HEART: Regular rate and rhythm. Normal and equal peripheral pulses. EXTREMITIES: Right foot has normal strength and sensation, limited range of motion 1st toe due to pain with movement. Swelling noted, tender with light palpation from 1st MTP to mid medial foot. No ecchymosis, No open wounds, or obvious deformity; alignment normal, pulse palpable and equal bilaterally, skin warm, dry, pink. Capillary refill less than 3 seconds. SKIN: Warm, dry NEURO: Alert and oriented x3. PSYCH: Normal mood and affect Course Course Emergency Course: Patient is aware of diagnosis, understands and agrees to treatment plan. Anticipatory guidance given. Patient agrees to follow-up as directed and is aware of reasons to seek care at the emergency department. Portions of this record may have been created with voice recognition software Level of Care: Express Care Visit Vital Signs Vital signs: Vital Signs Temperature 98.3 F 10/19/24 18:28 Pulse Rate 85 10/19/24 18:28 Respiratory Rate 20 10/19/24 18:28 Blood Pressure 130/75 10/19/24 18:28 Pulse Oximetry 100 10/19/24 18:28 Oxygen Delivery Room Air 10/19/24 18:28 Temperature 98.3 F 10/19/24 18:28 Pulse Rate 85 10/19/24 18:28 Respiratory Rate 20 10/19/24 18:28 Blood Pressure 130/75 10/19/24 18:28 Pulse Oximetry 100 10/19/24 18:28 Oxygen Delivery Room Air 03/03/25 18:28 Reviewed MDM - Extremity Injury (Lower) MDM Narrative Medical decision making narrative: Discussed physical exam findings and xray; read as negative. Possible distal 1st metatarsal avulsion on preliminary read, pt advised close f/u. pt states she cannot tolerate weight bearing. Provided post op shoe and crutches, reymundo applied.. Advised supportive measures and signs/symptoms to go to the ER. Pt is appropriate for outpt treatment and f/u. Differential Diagnosis Differential diagnosis: Likely ankle sprain and strain, puncture wound of foot, fracture of toe, ankle fracture and other (foot fracture, toe fracture) Imaging Data Radiologist's impression: Patient: Svitlana Cross : 1980 MR#: [id number] Age: 44 Acct:[id number] Loc: [facility] ADM Date: 10/19/24Attending Dr: Ordering Physician: Ana Cristina Sanchez APRN Date of Service: 10/19/24 Procedure(s): XR foot RT min 3V Accession Number(s): [id number] cc: Ana Cristina Sanchez APRN; [facility] ~ HISTORY: pain, tripped. attn: great toe COMPARISON: None TECHNIQUE: Multiple views of the right foot were performed. FINDINGS: No acute or subacute fracture. Joint spaces are preserved and alignment is maintained. Soft tissues are unremarkable without foreign body or significant calcification. Age-appropriate mineralization. Significant calcaneal spur is present. IMPRESSION: Degenerative disease, without acute fracture, as detailed above. Discharge Plan Discharge Clinical Impression: Acute pain of right foot Patient Disposition: Home, Self-Care Condition: Stable Instructions: Foot Sprain (ED) Additional Instructions: Rest and elevate the right leg; bear weight as tolerated. wear the postop shoe and use the crutches until you follow-up Apply ice 15-20 minute intervals several times a day Motrin 800mg every 8 hours, alternate with Tylenol 1000mg every 8 hours as needed Follow up with your primary care provider and mgmt specialist as needed; call to schedule an appointment Go to the ER for any worsening symptoms or concerns Patient Language: Lao Prescriptions: No Action ferrous sulfate [FeroSul] 325 mg (65 mg iron) tablet albuterol sulfate 90 mcg/actuation HFA aerosol inhaler 1 inh INHALATION PRN Follow-up/Referrals: Keyur Johnson MD [Physician] - [facility] [Primary Care Provider] - Time of Disposition: 19:31
== END 2024-10-19 19:45 | disposition home or self-care (01) ==
PROVIDERS: Emergency Provider Nurse Practitioner Family
DX: M79.671 Pain in right foot (principal); F17.210 Nicotine dependence, cigarettes, uncomplicated; J45.909 Unspecified asthma, uncomplicated
CPT/HCPCS: 73630; 99213; G0463